=== PATIENT | male | born 1980 | race Caucasian/White ===

== ENCOUNTER 2016-09-02 23:44 | Emergency (ER) | payer MEDICAID, OTHER, SELFPAY ==
[~2016-09-02] VITALS: Ht 180.3 cm; Wt 82.9 kg
[2016-09-03] MEDS ORDERED: AUGM875T28 PO (00:10)
[2016-09-03 04:11] VITALS: BP 110/79
[2016-09-03] MEDS ORDERED: BACTRIM 160MG/800MG DS TAB PO ONE (04:15)
[2016-09-03] MEDS ORDERED: BACT800T5 PO (04:18)
== END 2016-09-03 04:23 | disposition home or self-care (01) ==
LOC: M ED 23:44
DX: L03.113 Cellulitis of right upper limb (principal); Z86.14 Personal history of Methicillin resistant Staphylococcus aureus infection; F17.210 Nicotine dependence, cigarettes, uncomplicated; Z79.2 Long term (current) use of antibiotics

== ENCOUNTER → 2018-03-25 | Outpatient (REF) | payer OTHER ==
[~2018-03-25] MED LIST: AUGM875T28 PO; BACT800T5 PO
[2018-03-25 12:09] LABS: APPEARANCE, URINE CLEAR (CLEAR); BACTERIA, URINE AUTO NEGATIVE (NEGATIVE); BILIRUBIN, URINE AUTO NEGATIVE (NEGATIVE); BLOOD, URINE BLOOD NEGATIVE (NEGATIVE); COLOR, URINE YELLOW (YELLOW); GLUCOSE, URINE (UA) AUTO NEGATIVE (NEGATIVE); KETONE, URINE AUTO NEGATIVE (NEGATIVE); LEUKOCYTE ESTERASE, URINE AUTO NEGATIVE (NEGATIVE); NITRITE, URINE AUTO NEGATIVE (NEGATIVE); PROTEIN, URINE AUTO NEGATIVE (NEGATIVE); RBC, URINE AUTO 0 /HPF (0-3); SPECIFIC GRAVITY URINE AUTO 1.012 (1.002-1.035); SQUAMOUS EPITHELIAL CELL UR AU 0 /HPF (0-6); WBC, URINE AUTO 1 /HPF (0-3)
[2018-03-25 13:58] LABS: CHLAMYDIA DNA AMPLIFICATION NEGATIVE (NEGATIVE); GC DNA AMPLIFICATION NEGATIVE (NEGATIVE)
== END ==
LOC: M SFHCPLAZ 11:26
PROVIDERS: ATTEND Student in an Organized Health Care Education/Training Program
DX: R30.0 Dysuria (principal)

== ENCOUNTER → 2018-05-01 | Outpatient (REF) | payer OTHER | LOC: M SFHCPLAZ 15:49 | PROVIDERS: ATTEND Family Medicine | DX: D23.5 Other benign neoplasm of skin of trunk (principal); L85.8 Other specified epidermal thickening ==

== ENCOUNTER → 2018-06-27 | Outpatient (REF) | payer OTHER ==
[~2018-06-27] MED LIST changes: +NAPR500T6 PO; +OSEL75CA2; +ROBA500T PO
[2018-06-27 15:52] LABS: INFLUENZA A AMPLIFICATION NEGATIVE (NEGATIVE); INFLUENZA B AMPLIFICATION NEGATIVE (NEGATIVE)
== END ==
LOC: M LAB REF 10:59
PROVIDERS: ATTEND Physician Assistant Medical
DX: B34.9 Viral infection, unspecified (principal)

== ENCOUNTER 2018-06-29 08:17 | Emergency (ER) | payer OTHER ==
[~2018-06-29] VITALS: Ht 180.3 cm; Wt 75.0 kg
[~2018-06-29 08:17] MED LIST changes: -NAPR500T6 PO; -OSEL75CA2; -ROBA500T PO
[2018-06-29] MEDS ORDERED: OSEL75CA2 (08:27)
[2018-06-29] MEDS ORDERED: NS 1,000 ML IV ONE (08:45)
[2018-06-29 09:02] LABS: BASO % 0.6 % (0.0-1.0); EOS # 0.2 10^3/uL (0.0-0.50); EOS % 2.2 % (0.0-3.0); HEMATOCRIT 44.7 % (42.0-52.0); HEMOGLOBIN 16.3 g/dl (13.5-17.5); LYMPH # 2.1 10^3/uL (1.5-4.5); MEAN CORPUSCULAR HEMOGLOBIN 32.9 pg (27.0-33.0); MEAN CORPUSCULAR HGB CONC 36.5 g/dl (32.0-36.5); MEAN CORPUSCULAR VOLUME 90.1 fl (80.0-96.0); MONO # 0.5 10^3/uL (0.0-0.8); MONO % 7.2 % (0.0-5.0); NEUTROPHILS % 58.7 % (36.0-66.0); PLATELET COUNT, AUTOMATED 206 10^3/uL (150-450); RED BLOOD COUNT 4.96 10^6/uL (4.30-6.10); WHITE BLOOD COUNT 6.8 10^3/uL (4.0-10.0)
--- NOTE | 2018-06-29 09:14 | REP ---
Chest two views HISTORY: Chest pain Comparison: None The lungs are clear. The heart is normal in size. The pulmonary vasculature is normal in appearance. The bony structure is intact. IMPRESSION: No acute disease. Electronically Signed by Saul Hammonds MD 06/29/2018 09:06 A
[2018-06-29] MEDS ORDERED: MORPHINE 2 MG/ML 1ML SYRINGE (J2270) IV ONE (09:15)
[2018-06-29 09:37] LABS: ALBUMIN 3.7 GM/DL (3.2-5.2); ALT/SGPT 77 U/L (12-78); BILIRUBIN,DIRECT 0.2 MG/DL (0.0-0.2); BILIRUBIN,TOTAL 0.8 MG/DL (0.2-1.0); BLOOD UREA NITROGEN 16 MG/DL (7-18); CALCIUM LEVEL 8.3 MG/DL (8.5-10.1); CARBON DIOXIDE LEVEL 29 MEQ/L (21-32); CHLORIDE LEVEL 106 MEQ/L (98-107); CK-MB VALUE MASS < 1.0 NG/ML (<3.6); CPK CREATINE PHOSPHOKINASE 90 U/L (39-308); CREATININE FOR GFR 0.89 MG/DL (0.70-1.30); GLOMERULAR FILTRATION RATE > 60.0 (>60); GLUCOSE, FASTING 92 MG/DL (70-100); LIPASE 80 U/L (73-393); MB/CK RELATIVE INDEX 1.11 (< OR =4); POTASSIUM SERUM 4.3 MEQ/L (3.5-5.1); SODIUM LEVEL 140 MEQ/L (136-145); TROPONIN I < 0.02 NG/ML (< 0.10)
[2018-06-29] MEDS ORDERED: ISOVUE-370 76% 100ML VIAL (Q9967) As Ordered ONE (09:39)
[2018-06-29] MEDS ORDERED: CYCLOBENZAPRINE 10 MG TAB PO ONE (10:15)
[2018-06-29] MEDS ORDERED: KETOROLAC 30 MG/ML VIAL (J1885) IV ONE (10:15)
--- NOTE | 2018-06-29 10:19 | REP ---
CT ANGIOGRAM CHEST: TECHNIQUE: Axial contrast enhanced images from the thoracic inlet to the upper abdomen using 100 mL Isovue 370 intravenous contrast material with multiplanar reformations. There is no CT evidence of pulmonary embolism. There is no thoracic aortic aneurysm or dissection. Heart is normal in size. There is no pleural or pericardial effusion. There is no evidence of mediastinal, hilar or chest wall lymphadenopathy. There are mild dependant atelectatic changes in both lungs. Visualized upper abdominal structures appear grossly unremarkable. IMPRESSION: NO CT evidence of pulmonary embolism. Electronically Signed by Samuel Joy MD 06/29/2018 04:23 P
[2018-06-29] MEDS ORDERED: ROBA500T PO (10:47)
[2018-06-29] MEDS ORDERED: NAPR500T6 PO (10:47)
[2018-06-29 11:00] VITALS: BP 120/56
--- NOTE | 2018-06-29 14:52 | ECGEPIP ---
Stationary ECG Study [facility] - ED Test Date: 2018-06-29 Pat Name: FRANCOISE LOPEZ Department: Room: - Gender: M Compliance Paralegal: celeste : 1980 Requested By: HOLLY Kay PA-C Order Number: [id number] Reading MD: Paco Mahajan Measurements Intervals [place] Rate: 63 P: 73 [place]: 255 QRS: 66 QRSD: 100 T: 57 QT: 377 QTc: 387 Interpretive Statements SINUS RHYTHM WITH FIRST DEGREE AV BLOCK Low QRS complex voltage in the limb leads Comparison tracing not on file Electronically Signed On 06-29-2018 14:52:36 EDT by Paco Mahajan
== END 2018-06-29 11:02 | disposition home or self-care (01) ==
LOC: M ED 08:17
DX: M54.9 Dorsalgia, unspecified (principal); R07.9 Chest pain, unspecified; F17.210 Nicotine dependence, cigarettes, uncomplicated; Z88.0 Allergy status to penicillin
CPT/HCPCS: 71046; 71275; 80048; 80076; 82550; 82553; 83690; 85025; 93005; 96361; 96374; 96375; 99284; J1885; J2270; Q9967

== ENCOUNTER → 2020-12-15 | Outpatient (CLI) | payer OTHER ==
[~2020-12-15] MED LIST changes: +NAPR500T6 PO; +OSEL75CA2; +ROBA500T PO
--- NOTE | 2020-12-15 13:35 | REP ---
INDICATION: PAIN BILATERAL HEEL. COMPARISON: None. TECHNIQUE: Two views bilateral FINDINGS: There is no acute fracture or destructive osseous lesion bilateral. There are no plantar or retrocalcaneal heel spurs. IMPRESSION: Within normal limits bilateral. <Electronically signed by Feliciano Garcia > 12/15/20 [id number]
[2020-12-15 16:02] LABS: HEMATOCRIT 44.2 % (42.0-52.0); HEMOGLOBIN 15.6 g/dl (13.5-17.5); MEAN CORPUSCULAR HEMOGLOBIN 32.3 pg (27.0-33.0); MEAN CORPUSCULAR HGB CONC 35.3 g/dl (32.0-36.5); MEAN CORPUSCULAR VOLUME 91.5 fl (80.0-96.0); PLATELET COUNT, AUTOMATED 219 10^3/uL (150-450); RED BLOOD COUNT 4.83 10^6/uL (4.30-6.10)
[2020-12-15 16:25] LABS: ALT/SGPT 84 U/L (12-78); BLOOD UREA NITROGEN 15 MG/DL (7-18); CARBON DIOXIDE LEVEL 32 MEQ/L (21-32); CHLORIDE LEVEL 104 MEQ/L (98-107); CHOLESTEROL LEVEL 146 MG/DL (<200); CHOLESTEROL RISK RATIO 2.056 (<5); CREATININE FOR GFR 1.03 MG/DL (0.70-1.30); FREE T4 1.04 NG/DL (0.76-1.46); GLOMERULAR FILTRATION RATE > 60.0 (>60); GLUCOSE, FASTING 80 MG/DL (70-100); HDL CHOLESTEROL 71 MG/DL (>40); LDL CHOLESTEROL 63 MG/DL (<100); NON-HDL-C 75 MG/DL; POTASSIUM SERUM 4.1 MEQ/L (3.5-5.1); SODIUM LEVEL 138 MEQ/L (136-145); THYROID STIMULATING HORMONE 0.941 uIU/ML (0.358-3.740); TOTAL PROTEIN 7.3 GM/DL (6.4-8.2); TRIGLYCERIDES LEVEL 61 MG/DL (<150)
[2020-12-15 16:59] LABS: HIV 1&2 SCREEN CENTAUR NEGATIVE (NEGATIVE)
[2020-12-15 17:04] LABS: HEPATITIS C VIRUS ABY INDEX > 11.0 INDEX (<0.8)
== END ==
LOC: M PLALAB 12:08
PROVIDERS: ATTEND Student in an Organized Health Care Education/Training Program
DX: M79.671 Pain in right foot (principal)

== ENCOUNTER → 2020-12-20 | Outpatient (CLI) | payer OTHER ==
[2020-12-20 14:25] LABS: HEPATITIS B SURFACE ANTIBODY POSITIVE (POSITIVE); HEPATITIS B SURFACE ANTIGEN NEGATIVE (NEGATIVE)
[2020-12-26 12:07] LABS: HEPATITIS A IgG TOTAL Positive (Negative); HEPATITIS B CORE ANTIBODY IGG Negative (Negative); HEPATITIS C QUANTITATION 1540000 IU/mL (.); HEPATITIS C VIRUS GENOTYPE 3 (.)
== END ==
LOC: M PLALAB 10:56
PROVIDERS: ATTEND Student in an Organized Health Care Education/Training Program
DX: R76.8 Other specified abnormal immunological findings in serum (principal)

== ENCOUNTER → 2020-12-21 | Outpatient (CLI) | payer OTHER | LOC: M PLALAB 11:16 | PROVIDERS: ATTEND Student in an Organized Health Care Education/Training Program | DX: R76.8 Other specified abnormal immunological findings in serum (principal); Z53.9 Procedure and treatment not carried out, unspecified reason ==

== ENCOUNTER → 2021-04-11 | Outpatient (CLI) | payer OTHER ==
[2021-04-11 18:41] LABS: BILIRUBIN,DIRECT 0.2 MG/DL (0.0-0.2); BILIRUBIN,TOTAL 0.8 MG/DL (0.2-1.0); TOTAL PROTEIN 6.8 GM/DL (6.4-8.2)
[2021-04-13 17:07] LABS: HEPATITIS C QUANTITATION HCV Not Detected IU/mL (.)
== END ==
LOC: M PLALAB 13:56
PROVIDERS: ATTEND Internal Medicine Infectious Disease
DX: B18.2 Chronic viral hepatitis C (principal)

== ENCOUNTER → 2021-07-17 | Outpatient (CLI) | payer OTHER ==
[2021-07-17 14:01] LABS: BILIRUBIN,DIRECT 0.3 MG/DL (0.0-0.2); BILIRUBIN,TOTAL 0.9 MG/DL (0.2-1.0); TOTAL PROTEIN 6.5 GM/DL (6.4-8.2)
[2021-07-18 17:07] LABS: HEPATITIS C QUANTITATION HCV Not Detected IU/mL (.)
== END ==
LOC: M PLALAB 10:38
PROVIDERS: ATTEND Internal Medicine Infectious Disease
DX: B18.2 Chronic viral hepatitis C (principal)

== ENCOUNTER → 2021-12-28 | Outpatient (REF) | payer OTHER ==
[2021-12-28 18:23] LABS: HEMATOCRIT 43.7 % (42.0-52.0); HEMOGLOBIN 15.4 g/dl (13.5-17.5); MEAN CORPUSCULAR HEMOGLOBIN 32.8 pg (27.0-33.0); MEAN CORPUSCULAR HGB CONC 35.2 g/dl (32.0-36.5); PLATELET COUNT, AUTOMATED 248 10^3/uL (150-450); WHITE BLOOD COUNT 9.4 10^3/uL (4.0-10.0)
[2021-12-28 18:58] LABS: ALBUMIN 4.1 GM/DL (3.2-5.2); ALT/SGPT 16 U/L (12-78); BILIRUBIN,TOTAL 0.6 MG/DL (0.2-1.0); BLOOD UREA NITROGEN 17 MG/DL (7-18); CALCIUM LEVEL 9.3 MG/DL (8.5-10.1); CARBON DIOXIDE LEVEL 31 MEQ/L (21-32); CHLORIDE LEVEL 106 MEQ/L (98-107); CHOLESTEROL LEVEL 175 MG/DL (<200); CHOLESTEROL RISK RATIO 2.692 (<5); CREATININE FOR GFR 1.01 MG/DL (0.70-1.30); GLOMERULAR FILTRATION RATE > 60.0 (>60); GLUCOSE, FASTING 106 MG/DL (70-100); HDL CHOLESTEROL 65 MG/DL (>40); LDL CHOLESTEROL 83 MG/DL (<100); NON-HDL-C 110 MG/DL; POTASSIUM SERUM 4.3 MEQ/L (3.5-5.1); SODIUM LEVEL 142 MEQ/L (136-145); TOTAL PROTEIN 7.1 GM/DL (6.4-8.2); TRIGLYCERIDES LEVEL 134 MG/DL (<150)
[2021-12-28 21:47] LABS: GC DNA AMPLIFICATION NEGATIVE (NEGATIVE)
== END ==
LOC: M SFHCPLAZ 16:54
PROVIDERS: ATTEND Student in an Organized Health Care Education/Training Program
DX: Z13.1 Encounter for screening for diabetes mellitus (principal); N41.9 Inflammatory disease of prostate, unspecified; Z13.220 Encounter for screening for lipoid disorders

== ENCOUNTER → 2022-12-10 | Outpatient (REF) | payer OTHER | LOC: M SFHCPLAZ 18:17 | PROVIDERS: ATTEND Student in an Organized Health Care Education/Training Program | DX: L82.1 Other seborrheic keratosis (principal) ==

== ENCOUNTER → 2023-02-03 | Outpatient (REF) | payer OTHER | LOC: M SFHCPLAZ 13:55 | PROVIDERS: ATTEND Student in an Organized Health Care Education/Training Program | DX: Z13.220 Encounter for screening for lipoid disorders (principal); Z13.1 Encounter for screening for diabetes mellitus; Z72.0 Tobacco use; F41.9 Anxiety disorder, unspecified ==

== ENCOUNTER → 2024-09-07 | Outpatient (CLI) | payer OTHER ==
[~2024-09-07] MED LIST changes: +NAPR-1405 PO; -NAPR500T6 PO
== END ==
LOC: M SOG 12:18
PROVIDERS: ATTEND Orthopaedic Surgery
DX: M25.551 Pain in right hip (principal)